=== PATIENT | male | born 1965 ===

== ENCOUNTER 2017-10-02 11:33 | Inpatient (IN) | payer MEDICAID, OTHER ==
[2017-10-02] MEDS ORDERED: DiphenhydrAMINE 50 mg/ml Inj IVP STA (12:06)
[2017-10-02] MEDS ORDERED: Vancomycin 1gm in NS 250ml 1 GM/250 ML BAG IVPB STA (12:06)
[2017-10-02] MEDS ORDERED: TDAP Vaccine 0.5 mL Syr IM ONE (12:15)
--- NOTE | 2017-10-02 12:15 | ED PDOC ---
Arrival/HPI - General Chief Complaint: Abnormal Skin Integrity Time Seen by Provider: 10/02/17 11:54 Historian: Patient - History of Present Illness Narrative History of Present Illness (Text): 10/02/17 12:09 52 y/o male, no significant pmh, nkda, last tetanus over 10 years ago, c/o lt. anterior graves pain and swelling x 3 weeks. Pt. stated that he accidentally hit on the wooden chair corner about 3 weeks ago, sustained abrasion which he has been self treating with the neosporin at home, still not healing, no fever or chills, no night sweat, no rash, no numbness or tingling, no palpitation, no other medical or psychological complaints. Past Medical History - Provider Review Nursing Documentation Reviewed: Yes - Infectious Disease Hx of Infectious Diseases: None - Pulmonary Hx Sleep Apnea: Yes - Psychiatric Hx Substance Use: No Family/Social History - Physician Review Nursing Documentation Reviewed: Yes Family/Social History: Unknown Family HX Smoking Status: Never Smoked Hx Alcohol Use: Yes Frequency of alcohol use: Socially Hx Substance Use: No Allergies/Home Meds Allergies/Adverse Reactions: Allergies No Known Allergies Allergy (Verified 10/02/17 11:50) Home Medications: Home Meds Medication Instructions Recorded Confirmed No Known Home Med 10/02/17 10/02/17 Review of Systems - Review of Systems Constitutional: absent: Fatigue, Fevers Eyes: absent: Vision Changes ENT: absent: Hearing Changes Respiratory: absent: SOB, Cough Cardiovascular: absent: Chest Pain Gastrointestinal: absent: Abdominal Pain, Nausea, Vomiting Skin: Rash, Skin Lesions, Cellulitis. absent: Pruritis, Laceration, Abscess, Ulcer Neurological: absent: Headache, Dizziness Psychiatric: absent: Anxiety, Depression, Suicidal Ideation Physical Exam Vital Signs Reviewed: Yes Vital Signs Temp Pulse Resp BP Pulse Ox 10/02/17 11:51 97.9 F 82 18 142/80 96 Temperature: Afebrile Blood Pressure: Normal Pulse: Regular Respiratory Rate: Normal Appearance: Positive for: Well-Appearing, Non-Toxic, Comfortable Pain Distress: Mild Mental Status: Positive for: Alert and Oriented X 3 - Systems Exam Head: Present: Atraumatic, Normocephalic Pupils: Present: PERRL Extroacular Muscles: Present: EOMI Conjunctiva: Present: Normal Mouth: Present: Moist Mucous Membranes Neck: Present: Normal Range of Motion Respiratory/Chest: Present: Clear to Auscultation, Good Air Exchange. No: Respiratory Distress, Accessory Muscle Use Cardiovascular: Present: Regular Rate and Rhythm, Normal S1, S2. No: Murmurs Abdomen: No: Tenderness, Distention, Peritoneal Signs Back: Present: Normal Inspection Upper Extremity: Present: Normal Inspection. No: Cyanosis, Edema Lower Extremity: Present: Normal Inspection, Other (Lt. graves: anteriorly noted to have 4cm superficial healing abrasion with surround erythematous approx. [id number] superficial cellulitis, no streaking or ulcers, FROM without limitation, sensation intact, motor 5/5, +DPPT pulses, capillary refill< 2 seconds, neurovasuclar intact. ). No: Edema Neurological: Present: GCS=15, CN II-XII Intact, Speech Normal Skin: Present: Warm, Dry, Normal Color. No: Rashes Psychiatric: Present: Alert, Oriented x 3, Normal Insight, Normal Concentration Medical Decision Making ED Course and Treatment: 10/02/17 12:18 Differential: DVT vs. Cellulitis vs. Fracture/foreign bodies -The wound doesn't feel or palpate any foreign bodies -Labs -LLE venuous dopper -Lt. tibia/fibula -IV vancomyin/toradol/benadryl -observe and reassess 10/02/17 14:25 -Lt.tibia/fibula xray: Unremarkable radiographs of the left tibia and fibula. -LLE Venuous doppler: as per preliminary report, no acute DVT -Labs are non-significant except wbc 1.5/platete 47, magnesium 2.3 with no previous comparisons -Pt. has extensive cellulitis, needs IV antibiotic and observation -Paging hospitalist for admission. 10/02/17 14:46 -I spoke to the hospitalist Dr. Fajardo, discussed about the case/labs/radiology result, agreed to admit to his service. -Dr. Nicole is busy, will put in the admission order for him for now. - Lab Interpretations Lab Results: 10/02/17 12:30 10/02/17 12:30 Lab Results 10/02/17 12:30: WBC 1.5 L*, RBC 4.30, Hgb 13.4 L, Hct 38.2 L, MCV 88.8, MCH 31.2 , MCHC 35.1, RDW 15.0 H, Plt Count 47 L*, MPV 10.0, Gran % 62.3, Lymph % (Auto) 19.9 L, Hill % (Auto) 11.6 H, Eos % (Auto) 4.8, Baso % (Auto) 1.4, Gran # 0.91 L , Lymph # (Auto) 0.3 L, Hill # (Auto) 0.2, Eos # (Auto) 0.1, Baso # (Auto) 0.02 10/02/17 12:30: Sodium 142, Potassium 4.3, Chloride 106, Carbon Dioxide 28, Anion Gap 12, BUN 9, Creatinine 0.7 L, Est GFR ( Amer) > 60, Est GFR (Non -Af Amer) > 60, Random Glucose 97, Calcium 8.4, Total Bilirubin 2.3 H, AST 135 H , ALT 56, Alkaline Phosphatase 227 H, Total Protein 7.6, Albumin 3.5, Globulin 4.1, Albumin/Globulin Ratio 0.9 L I have reviewed the lab results: Yes - RAD Interpretation Radiology Orders: 10/02/17 12:06 TIBIA FIBULA LEFT [RAD] Stat DUPLEX LOWER EXTRM VEIN LEFT [US] Stat Lt. tibia/fibula xray: Date of service: 10/02/2017 PROCEDURE: Radiographs of the left tibia and fibula. HISTORY: lt. tibial swelling COMPARISON: None available. TECHNIQUE: Frontal and lateral views obtained. FINDINGS: BONES: No fracture or destructive lesion. JOINT SPACES: Unremarkable. OTHER FINDINGS: None. IMPRESSION: Unremarkable radiographs of the left tibia and fibula. LLE Venuous doppler: as per preliminary report, no acute DVT Rn Plastics: Radiologist - Medication Orders Current Medication Orders: Discontinued Medications Diphenhydramine HCl (Benadryl) 25 mg IVP STAT STA Stop: 10/02/17 12:07 Last Admin: 10/02/17 12:34 Dose: 25 mg IVP Administration Document 10/02/17 12:34 EQ (Rec: 10/02/17 12:34 EQ [facility] Charges for Administration # of IVP Administrations 1 Vancomycin HCl (Vancomycin 1gm) 1 gm in 250 mls @ 167 mls/hr IVPB STAT STA PRN Reason: Protocol Stop: 10/02/17 13:35 Last Admin: 10/02/17 12:33 Dose: 167 mls/hr eMAR Start Stop Document 10/02/17 12:33 EQ (Rec: 10/02/17 12:33 EQ [facility]) Intravenous Solution Start Date 10/02/17 Start Time 12:33 Ketorolac Tromethamine (Toradol) 30 mg IVP STAT STA Stop: 10/02/17 12:07 Last Admin: 10/02/17 12:34 Dose: 30 mg MAR Pain Assessment Document 10/02/17 12:34 EQ (Rec: 10/02/17 12:34 EQ [facility] Pain Reassessment Is this a pain reassessment? No Sleep Is patient sleeping during reassessment? No Presence of Pain Presence of Pain Yes IVP Administration Document 10/02/17 12:34 EQ (Rec: 10/02/17 12:34 EQ [facility]) Charges for Administration # of IVP Administrations 1 Tetanus/Reduced Diphtheria/Acell Pertussis (Boostrix Vaccine Inj) 0.5 ml IM .ONCE ONE Stop: 10/02/17 12:16 Last Admin: 10/02/17 12:33 Dose: 0.5 ml - PA / SLOT TECHNICIAN / Resident Statement MD/DO has reviewed & agrees with the documentation as recorded. Disposition/Present on Arrival - Present on Arrival Any Indicators Present on Arrival: No History of DVT/PE: No History of Uncontrolled Diabetes: No Urinary Catheter: No History of Decub. Ulcer: No History Surgical Site Infection Following: None - Disposition Have Diagnosis and Disposition been Completed?: Yes Diagnosis: Infected abrasion, Cellulitis, Thrombocytopenia, Leukopenia Disposition: HOSPITALIZED Disposition Time: 14:27 Patient Plan: Admission, Observation Patient Problems: Current Active Problems Problem Status Onset Infected abrasion Acute Cellulitis Acute Condition: STABLE Discharge Instructions (ExitCare): Cellulitis (ED) Forms: Heidi Shaulis (Turkish)
[2017-10-02 12:39] LABS: BASO # 0.02 K/mm3 (0.0-2.0); BASO % 1.4 % (0.0-3.0); EOS # 0.1 (0.0-0.7); EOS % 4.8 % (1.5-5.0); GRAN # 0.91 (1.4-6.5); GRAN % 62.3 % (50.0-68.0); HEMOGLOBIN 13.4 g/dL (14.0-18.0); LYMPH # 0.3 (1.2-3.4); LYMPH % 19.9 % (22.0-35.0); MEAN CELL VOLUME 88.8 fl (80.0-105.0); MEAN CORPUSCULAR HEMOGLOBIN 31.2 pg (25.0-35.0); MEAN CORPUSCULAR HGB CONC 35.1 g/dl (31.0-37.0); MONO # 0.2 (0.1-0.6); MONO % 11.6 % (1.0-6.0)
[2017-10-02 12:50] LABS: WHITE BLOOD COUNT 1.5 10^3/ul (4.5-11.0)
[2017-10-02 12:51] LABS: PLATELET COUNT 47 10^3/uL (120.0-450.0)
[2017-10-02 12:54] LABS: ALB/GLOB RATIO 0.9 (1.1-1.8); ALBUMIN 3.5 g/dL (3.0-4.8); ALT/SGPT 56 U/L (7-56); AST/SGOT 135 U/L (17-59); BLOOD UREA NITROGEN 9 mg/dL (7-21); CALCIUM 8.4 mg/dL (8.4-10.5); GFR AFRICAN-AMERICAN > 60; GFR NON-AFRICAN AMERICAN > 60
--- NOTE | 2017-10-02 13:47 | RAD ---
Date of service: 10/02/2017 PROCEDURE: Radiographs of the left tibia and fibula. HISTORY: lt. tibial swelling COMPARISON: None available. TECHNIQUE: Frontal and lateral views obtained. FINDINGS: BONES: No fracture or destructive lesion. JOINT SPACES: Unremarkable. OTHER FINDINGS: None. IMPRESSION: Unremarkable radiographs of the left tibia and fibula.
[2017-10-02] MEDS ORDERED: Enoxaparin 40 mg Syringe SC SCH (15:00)
--- NOTE | 2017-10-02 15:54 | CP.PCM.HP ---
<Eran Aj - Last Filed: 10/02/17 16:34> History of Present Illness - History of Present Illness History of Present Illness: Eran Aj DO PGY-1, Desulfurizer Operator Medicine History and Physical 52 y o male PMhx sleep apnea, alcohol abuse presents to the ED c/o L anterior graves pain and swelling x 3 weeks. Pt states he was on top of a bar stool at home adjusting a vent on an air conditioning unit when he lost his balance, the stool fell underneath him, and hit his leg in the L anterior graves area. Pt states for the past several weeks, the area did not heal well. Pt c/o "scab" in area where he bumped his leg, denies bleeding, states the scab was there first, and then his leg became erythematous around it, from distal to his L knee to proximal to L lower anterior calf. Pt has only been applying neosporin to affected area. Pt states he does not follow with a PCP currently. Pt's girlfriend states at bedside that he came today because it was not improving, and that pt's girlfriend and pt's mother were concerned about the swelling. Denies fever or chills. Denies numbness/tingling/decreased sensation to affected area. States he has not had pain with ambulation since this started. Denies hx of this occurring before. Denies prior hx of cellulitis. Pt states he had bone marrow biopsy done 5 y ago as part of physical exam [place] [facility] [place] and he had history of low WBCs. Pt admits to drinking a 6 pack of beer almost every day during the week, admits to occasionally mixing with liquor. Reports last drink of alcohol was at 2 am this morning. Denies headache, dizziness, palpitations, diaphoresis, chest pain, shortness of breath, n/v/d/c, abd pain, urinary complaints, tremors, or other symptoms. PMhx: Sleep apnea, EtOH abuse PSurgHx: denies Allergies: NKDA Meds: none Fam hx: no pertinent family hx Soc hx: sexually active with girlfriend, does not use condoms, denies hx of STDs , last HIV test neg as per patient 4 mos ago Present on Admission - Present on Admission Any Indicators Present on Admission: No Review of Systems - Constitutional Constitutional: absent: As Per HPI, Anorexia, Chills, Daytime Sleepiness, Excessive Sweating, Fatigue, Fever, Frequent Falls, Headache, Increased Appetite , Lethargy, Malaise, Night Sweats, Snoring, Sleep Apnea, Weight Gain, Weight Loss, Weakness, Other - Cardiovascular Cardiovascular: absent: As Per HPI, Acrocyanosis, Chest Pain, Chest Pain at Rest , Chest Pain with Activity, Claudication, Diaphoresis, Dyspnea, Dyspnea on Exertion, Edema, Irregular Heart Rhythm, Pain Radiating to Arm/Neck/Jaw, Leg Edema, Leg Ulcers, Lightheadedness, Orthopnea, Palpitations, Paroxysmal Nocturnal Dyspnea, Pedal Edema, Radiating Pain, Rapid Heart Rate, Slow Heart Rate, Syncope, Other - Respiratory Respiratory: absent: As Per HPI, Cough, Dyspnea, Hemoptysis, Dyspnea on Exertion , Wheezing, Snoring, Stridor, Pain on Inspiration, Chest Congestion, Excessive Mucous Production, Change in Mucous Color, Pain with Coughing, Other - Gastrointestinal Gastrointestinal: absent: As Per HPI, Abdominal Pain, Belching, Bloating, Change in Bowel Habits, Change in Stool Character, Coffee Ground Emesis, Constipation, Cramping, Diarrhea, Dyspepsia, Dysphagia, Early Satiety, Excessive Flatus, Fecal Incontinence, Heartburn, Hematemesis, Hematochezia, Loose Stools, Melena, Nausea, Odynophagia, Temesmus, Vomiting, Other - Integumentary Integumentary: Erythema, New Lesions - Neurological Neurological: absent: As Per HPI, Abnormal Gait, Abnormal Hearing, Abnormal Movements, Abnormal Speech, Behavioral Changes, Burning Sensations, Confusion, Convulsions, Disequilibrium, Dizziness, Numbness, Focal Weakness, Frequent Falls , Headaches, Lack of Coordination, Loss of Vision, Memory Loss, Paresthesias, Radicular Pain, Restless Legs, Sensory Deficit, Syncope, Tingling, Tremor, Vertigo, Weakness, Other Visual Disturbances, Other Past Patient History - Infectious Disease Hx of Infectious Diseases: None - Past Social History Smoking Status: Never Smoked - PULMONARY Hx Sleep Apnea: Yes - PSYCHIATRIC Hx Substance Use: No - SURGICAL HISTORY Hx Surgeries: No Meds Allergies/Adverse Reactions: Allergies Allergy/AdvReac Type Severity Reaction Status Date / Time No Known Allergies Allergy Verified 10/02/17 16:16 Physical Exam - Constitutional Appears: Non-toxic, No Acute Distress - Head Exam Head Exam: ATRAUMATIC, NORMAL INSPECTION, NORMOCEPHALIC - Eye Exam Eye Exam: EOMI, Normal appearance, PERRL Additional comments: Negative for scleral icterus b/l - ENT Exam ENT Exam: Mucous Membranes Moist, Normal Oropharynx - Neck Exam Neck exam: Positive for: Full Rom, Normal Inspection - Respiratory Exam Respiratory Exam: Clear to Auscultation Bilateral, NORMAL BREATHING PATTERN - Cardiovascular Exam Cardiovascular Exam: REGULAR RHYTHM, +S1, +S2 - GI/Abdominal Exam GI & Abdominal Exam: Normal Bowel Sounds, Soft - Extremities Exam Extremities exam: Positive for: full ROM, normal capillary refill, pedal pulses present Additional comments: Lesion 2-3 cm in size surrounded by 10-14 cm area of erythema, no induration or fluctuance, firm, not warm to palpation, no abnormal discharge noted on exam - Back Exam Back exam: FULL ROM, NORMAL INSPECTION - Neurological Exam Neurological exam: Alert, CN II-XII Intact, Oriented x3 - Psychiatric Exam Psychiatric exam: Normal Affect, Normal Mood - Skin Skin Exam: Dry, Intact, Warm Results - Vital Signs Recent Vital Signs: Last Vital Signs Temp 97.9 F 10/02/17 11:51 Pulse 74 10/02/17 15:38 Resp 18 10/02/17 15:38 BP 127/54 L 10/02/17 15:38 Pulse Ox 100 10/02/17 15:38 - Labs Result Diagrams: 10/02/17 12:30 10/02/17 12:30 Assessment & Plan - Assessment and Plan (Free Text) Assessment: 52 y o male PMhx sleep apnea, EtOH abuse, presenting with 3 weeks of L anterior graves pain and swelling x 3 weeks. Pt admitted for cellulitis and treatment with IV antibiotics. Pt to also be monitored for alcohol withdrawal symptoms. Plan: L lower leg cellulitis S/p vancomycin in ED Start clindamycin 600 mg IVPB q 8 h Pt received tetanus booster vaccine in ED Pt leukopenic, thrombocytopenic on admission, continue to trend ID consulted, recs appreciated Pt afebrile, vitals stable, continue to monitor Blood cx ordered x2 Podiatry consulted not needed at this time due to XR not showing evidence of osteomyelitis in foot Leukopenic, thrombocytopenic Continue to trend Lovenox and Protonix held due to low cell counts, will reassess in am Likely 2/2 to EtOH abuse vs. immunocompromised state HIV, alcohol level pending Alcohol withdrawal Last drink consumed by pt at 2 am this morning Alcohol level pending CIWA protocol Ativan 2 mg q 6 h PRN Seizure/fall/aspiration precautions Regular diet Pt not demonstrating signs or symptoms of withdrawal at this time, continue to monitor Elevated AST Likely 2/2 to EtOH abuse Hepatitis panel pending Pt not c/o RUQ pain Continue to trend Hyperbilirubinemia Continue to trend Pt not c/o RUQ pain GI/DVT ppx: Protonix and Lovenox held due to low cell counts, will reassess in am. Pt encouraged to ambulate for DVT ppx. Pt seen, examined with, and plan discussed with Dr. Fajardo, attending. Eran Aj DO PGY-1, Desulfurizer Operator Pager #[phone] <Cherelle Fajardo - Last Filed: 10/02/17 17:26> Results - Vital Signs Recent Vital Signs: Last Vital Signs Temp 97.9 F 10/02/17 11:51 Pulse 74 10/02/17 15:38 Resp 18 10/02/17 15:38 BP 127/54 L 10/02/17 15:38 Pulse Ox 100 10/02/17 15:38 - Labs Result Diagrams: 10/02/17 12:30 10/02/17 12:30 Attending/Attestation - Attestation I have personally seen and examined this patient.: Yes I have fully participated in the care of the patient.: Yes I have reviewed all pertinent clinical information: Yes Notes (Text): 10/02/17 17:22 52 year old male with past medical history of alcohol abuse who presents with left anterior graves cellulitis. Xray was negative for evidence of osteomyelitis and LE doppler was also negative. He is started on iv antibiotics. ID evaluation is requested. He has leukopenia and thrombocytopenia, possibly secondary to ETOH bone marrow suppression vs infection. HIV and hepatitis panel is ordered. Monitor LFTs. Alcohol level and urine drug screen is ordered. Monitor for alcohol withdrawal symptoms. He was counselled on alcohol abstinence. Cherelle Fajardo MD Hospitalist.
[2017-10-02 16:08] LABS: BILIRUBIN,DIRECT 1.3 mg/dL (0.0-0.4)
--- NOTE | 2017-10-02 16:22 | US ---
PROCEDURE: Left lower extremity venous US HISTORY: Leg pain and swelling. Evaluate for DVT. PHYSICIAN(S): Jac Templeton MD. TECHNIQUE: Duplex sonography and color-flow Doppler with graded compression were used to evaluate the deep venous system of the left lower extremity. FINDINGS: The visualized deep venous system of the left lower extremity is sonographically normal and compressible. Normal wave forms and augmentation are seen. There is no sonographic evidence for deep venous thrombosis in the visualized segments of the left lower extremity. IMPRESSION: 1. No sonographic evidence for deep venous thrombosis in the visualized segments of the left lower extremity.
--- NOTE | 2017-10-02 17:29 | CP.PCM.CON ---
History of Present Illness - History of Present Illness History of Present Illness: Infectious Disease Consultation: October 02, 2017 52 yo male with PMhx sleep apnea, alcohol abuse presents to the ED c/o L anterior graves pain and swelling x 3 weeks. Pt states he was on top of a bar stool at home adjusting a vent on an air conditioning unit when he lost his balance, the stool fell underneath him, and hit his leg in the L anterior graves area. Pt states for the past several weeks, the area did not heal well. Pt c/o "scab" in area where he bumped his leg, denies bleeding, states the scab was there first, and then his leg became erythematous around it, from distal to his L knee to proximal to L lower anterior calf. Pt has only been applying neosporin to affected area. Patient's girlfriend states that the laceration/ scab has not changed in size from the time of injury. Pt states he does not follow with a PCP currently but was recently at Dr. Guo's office for sleep apnea testing and evaluation in August 2017. Pt's girlfriend states at bedside that he came today because it was not improving over the past 3 weeks, and that pt's girlfriend and pt's mother were concerned about the swelling. Denies fever or chills. Denies numbness/tingling/decreased sensation to affected area. States he has not had pain with ambulation since this started. Denies hx of this occurring before. Denies prior hx of cellulitis. Pt states he had bone marrow biopsy done 5 y ago as part of physical exam at [facility] [place] and he had history of low WBCs. Pt admits to drinking a 6 pack of beer almost every day during the week, admits to occasionally mixing with liquor. Reports last drink of alcohol was at 2 am this morning. Denies headache, dizziness, palpitations, diaphoresis, chest pain, shortness of breath, n/v/d/c, abd pain, urinary complaints, tremors, or other symptoms. PMHx: Sleep apnea, EtOH abuse, Circulation issues PSHx: None given. Allergies: NKDA Meds: none Fam hx: HTN - mother Soc hx: sexually active with girlfriend, does not use condoms, denies hx of STDs, last HIV test neg as per patient 4 mos ago No tobacco or illicit drug use ROS: No fevers, chills, nausea, vomiting, diarrhea, headaches, dizziness, chest pain , abdominal pain, melena, hematuria, hematemesis, hematochezia, depression, anxiety Past Patient History - Infectious Disease Hx of Infectious Diseases: None - Past Social History Smoking Status: Never Smoked - PULMONARY Hx Sleep Apnea: Yes - PSYCHIATRIC Hx Substance Use: No - SURGICAL HISTORY Hx Surgeries: No Meds Allergies/Adverse Reactions: Allergies Allergy/AdvReac Type Severity Reaction Status Date / Time No Known Allergies Allergy Verified 10/02/17 16:16 - Medications Medications: Current Medications Clindamycin Phosphate 600 mg/ (Sodium Chloride) 54 mls @ 102 mls/hr IVPB Q8 YUNG PRN Reason: Protocol Last Admin: 10/02/17 16:41 Dose: 102 mls/hr Lorazepam (Ativan) 2 mg IVP Q6H PRN; Protocol PRN Reason: Agitation Physical Exam - Constitutional Appears: Non-toxic, No Acute Distress - Head Exam Head Exam: ATRAUMATIC, NORMOCEPHALIC Additional comments: detentition below average. - Eye Exam Eye Exam: EOMI, PERRL Pupil Exam: NORMAL ACCOMODATION, PERRL - ENT Exam ENT Exam: Mucous Membranes Moist, Normal External Ear Exam, TM's Normal Bilaterally - Respiratory Exam Respiratory Exam: Clear to Auscultation Bilateral, NORMAL BREATHING PATTERN. absent: Rales, Rhonchi, Wheezes - Cardiovascular Exam Cardiovascular Exam: REGULAR RHYTHM, RRR, +S1, +S2 - GI/Abdominal Exam GI & Abdominal Exam: Normal Bowel Sounds, Soft. absent: Distended, Tenderness - Extremities Exam Extremities exam: Positive for: full ROM Additional comments: mild chronic venous stasis changes. Scabbed laceration about 4 cm in length on anterior left lower leg. No current drainage. At time of my exam, no additional warmth or tenderness. - Neurological Exam Neurological exam: Alert, CN II-XII Intact, Oriented x3 - Psychiatric Exam Psychiatric exam: Normal Affect, Normal Mood - Skin Skin Exam: Normal Color Additional comments: except for anterior lower left leg with 4 cm laceration that is scabbed over. Results - Vital Signs Recent Vital Signs: Last Vital Signs Temp 97.9 F 10/02/17 11:51 Pulse 74 10/02/17 15:38 Resp 18 10/02/17 15:38 BP 127/54 L 10/02/17 15:38 Pulse Ox 100 10/02/17 15:38 - Labs Result Diagrams: 10/02/17 12:30 10/02/17 12:30 Assessment & Plan - Assessment and Plan (Free Text) Assessment: 52 yo male with injury to left leg 3 weeks ago when he fell off a bar stool while trying to fix something in the house. As per , the left leg has had a non-healing laceration on the anterior lower left leg. Patient was only using Neosporin ointment for treatment. Currently he has no major complaints. Local wound care. On Clindamycin for antibiotic care at this time. Can continue with Clindamycin. IF leg continues to improve, can consider use of Clindamycin 450 mg PO TID to continue treatment at this time. Supportive care. Thank you for allowing me to participate in the care of the patient, we will follow with you.
[2017-10-02 17:58] VITALS: BMI 38.0
[2017-10-02] MEDS ORDERED: Pneumococcal 23-Valent Vaccine IM ONE (17:58)
[2017-10-03] MEDS ORDERED: Pantoprazole 40 mg EC Tab PO SCH (06:00)
[2017-10-03 08:33] LABS: BASO # 0.01 K/mm3 (0.0-2.0); BASO % 0.7 % (0.0-3.0); EOS # 0.1 (0.0-0.7); EOS % 4.9 % (1.5-5.0); GRAN # 0.99 (1.4-6.5); GRAN % 68.7 % (50.0-68.0); HEMOGLOBIN 13.5 g/dL (14.0-18.0); LYMPH # 0.2 (1.2-3.4); LYMPH % 15.3 % (22.0-35.0); MEAN CELL VOLUME 88.1 fl (80.0-105.0); MEAN CORPUSCULAR HGB CONC 35.2 g/dl (31.0-37.0); MEAN PLATELET VOLUME 10.6 fl (7.0-11.0); MONO # 0.2 (0.1-0.6); MONO % 10.4 % (1.0-6.0); RBC 4.36 10^6/uL (3.5-6.1); RED CELL DISTRIBUTION WIDTH 14.6 % (11.5-14.5)
[2017-10-03 08:39] LABS: WHITE BLOOD COUNT 1.4 10^3/ul (4.5-11.0)
[2017-10-03 08:40] LABS: ALB/GLOB RATIO 0.8 (1.1-1.8); ALBUMIN 3.4 g/dL (3.0-4.8); ALT/SGPT 50 U/L (7-56); AST/SGOT 118 U/L (17-59); BLOOD UREA NITROGEN 9 mg/dL (7-21); CALCIUM 8.6 mg/dL (8.4-10.5); GFR AFRICAN-AMERICAN > 60; GFR NON-AFRICAN AMERICAN > 60; PLATELET COUNT 44 10^3/uL (120.0-450.0)
[2017-10-03 11:10] LABS: PLATELET ESTIMATE LOW (NORMAL)
[2017-10-03 12:14] LABS: HEPATITIS B SURFACE AG Negative (NEGATIVE)
[2017-10-03 12:20] LABS: HEPATITIS A IGM NEGATIVE (NEGATIVE); HEPATITIS B CORE AB NEGATIVE (NEGATIVE)
[2017-10-03 12:32] LABS: HEPATITIS C ANTIBODY NEGATIVE (NEGATIVE)
--- NOTE | 2017-10-03 13:57 | CP.PCM.PN ---
Subjective - Date & Time of Evaluation Date of Evaluation: 10/03/17 Time of Evaluation: 13:30 - Subjective Subjective: Infectious Disease Follow Up: October 03, 2017 52 yo male with PMhx sleep apnea, alcohol abuse presents to the ED c/o L anterior graves pain and swelling x 3 weeks. Pt states he was on top of a bar stool at home adjusting a vent on an air conditioning unit when he lost his balance, the stool fell underneath him, and hit his leg in the L anterior graves area. Pt states for the past several weeks, the area did not heal well. Pt c/o "scab" in area where he bumped his leg, denies bleeding, states the scab was there first, and then his leg became erythematous around it, from distal to his L knee to proximal to L lower anterior calf. Pt has only been applying neosporin to affected area. Patient's girlfriend states that the laceration/ scab has not changed in size from the time of injury. Pt states he does not follow with a PCP currently but was recently at Dr. Guo's office for sleep apnea testing and evaluation in August 2017. Pt's girlfriend states at bedside that he came today because it was not improving over the past 3 weeks, and that pt's girlfriend and pt's mother were concerned about the swelling. Denies fever or chills. Denies numbness/tingling/decreased sensation to affected area. States he has not had pain with ambulation since this started. Denies hx of this occurring before. Denies prior hx of cellulitis. Pt states he had bone marrow biopsy done 5 y ago as part of physical exam [place] [facility] [place] had history of low WBCs. Pt admits to drinking a 6 pack of beer almost every day during the week, admits to occasionally mixing with liquor. Reports last drink of alcohol was at 2 am this morning. Denies headache, dizziness, palpitations, diaphoresis, chest pain, shortness of breath, n/v/d/c, abd pain, urinary complaints, tremors, or other symptoms. The patient with no erythema, additional warmth, or palpational tenderness. No drainage from the large laceration that is scabbed over. Patient still with pain at site. However no issues with walking or gait. Objective - Vital Signs/Intake and Output Vital Signs (last 24 hours): Temp Pulse Resp BP Pulse Ox 97.9 F 89 18 130/80 96 10/03/17 06:00 10/03/17 06:00 10/03/17 06:00 10/03/17 06:00 10/03/17 06:00 Intake and Output: 10/03/17 10/03/17 06:59 18:59 Intake Total 660 Balance 660 - Medications Medications: Current Medications Clindamycin Phosphate 600 mg/ (Sodium Chloride) 54 mls @ 102 mls/hr IVPB Q8 YUNG PRN Reason: Protocol Last Admin: 10/03/17 05:31 Dose: 102 mls/hr Lorazepam (Ativan) 2 mg IVP Q6H PRN; Protocol PRN Reason: Agitation - Labs Labs: 10/03/17 05:00 10/03/17 05:00 - Constitutional Appears: Non-toxic, No Acute Distress - Head Exam Head Exam: ATRAUMATIC, NORMOCEPHALIC Additional comments: dentition below average. - Eye Exam Eye Exam: EOMI, PERRL Pupil Exam: NORMAL ACCOMODATION, PERRL - ENT Exam ENT Exam: Mucous Membranes Moist, Normal External Ear Exam, TM's Normal Bilaterally - Neck Exam Neck Exam: Full ROM, Normal Inspection - Respiratory Exam Respiratory Exam: Clear to Ausculation Bilateral, NORMAL BREATHING PATTERN. absent: Rales, Rhonchi, Wheezes - Cardiovascular Exam Cardiovascular Exam: REGULAR RHYTHM, RRR, +S1, +S2 - GI/Abdominal Exam GI & Abdominal Exam: Soft, Normal Bowel Sounds. absent: Distended, Tenderness - Extremities Exam Extremities Exam: Full ROM Additional comments: mild chronic venous stasis changes. Scabbed laceration about 4 cm in length on anterior left lower leg. No current drainage. At time of my exam, no additional warmth or tenderness. - Neurological Exam Neurological Exam: Alert, Awake, CN II-XII Intact, Oriented x3 - Psychiatric Exam Psychiatric exam: Normal Affect, Normal Mood - Skin Skin Exam: Normal Color Additional comments: except for anterior lower left leg with 4 cm laceration that is scabbed over. Assessment and Plan - Assessment and Plan (Free Text) Assessment: 52 yo male with injury to left leg 3 weeks ago when he fell off a bar stool while trying to fix something in the house. As per , the left leg has had a non-healing laceration on the anterior lower left leg. Patient was only using Neosporin ointment for treatment. Currently he has no major complaints. Local wound care. On Clindamycin for antibiotic care at this time. Can continue with Clindamycin. IF leg continues to improve, can consider use of Clindamycin 450 mg PO TID to continue treatment on discharge for at least 14 days of treatment. Supportive care. Thank you for allowing me to participate in the care of the patient, we will follow with you.
--- NOTE | 2017-10-03 15:56 | CP.PCM.PN ---
<Eran Aj - Last Filed: 10/03/17 15:52> Subjective - Date & Time of Evaluation Date of Evaluation: 10/03/17 Time of Evaluation: 07:45 - Subjective Subjective: Eran Aj DO PGY-1, [employer] Medicine Progress Note Pt seen and examined at bedside. Reports he has been ambulating out of bed to bathroom without concerns. Tolerating PO diet, denies pain in affected leg with cellulitis. No acute events reported overnight. Objective - Vital Signs/Intake and Output Vital Signs (last 24 hours): Temp Pulse Resp BP Pulse Ox 97.9 F 68 18 110/75 97 10/03/17 14:00 10/03/17 14:00 10/03/17 14:00 10/03/17 14:00 10/03/17 14:00 Intake and Output: 10/03/17 10/03/17 06:59 18:59 Intake Total 660 300 Balance 660 300 - Medications Medications: Current Medications Clindamycin Phosphate 600 mg/ (Sodium Chloride) 54 mls @ 102 mls/hr IVPB Q8 YUNG PRN Reason: Protocol Last Admin: 10/03/17 13:40 Dose: 102 mls/hr Lorazepam (Ativan) 2 mg IVP Q6H PRN; Protocol PRN Reason: Agitation - Labs Labs: 10/03/17 05:00 10/03/17 05:00 - Constitutional Appears: Non-toxic, No Acute Distress - Eye Exam Eye Exam: EOMI, Normal appearance, PERRL - ENT Exam ENT Exam: Mucous Membranes Moist, Normal Oropharynx - Neck Exam Neck Exam: Full ROM, Normal Inspection - Respiratory Exam Respiratory Exam: Clear to Ausculation Bilateral, NORMAL BREATHING PATTERN - Cardiovascular Exam Cardiovascular Exam: REGULAR RHYTHM, +S1, +S2 - GI/Abdominal Exam GI & Abdominal Exam: Soft, Normal Bowel Sounds - Extremities Exam Extremities Exam: Full ROM, Normal Capillary Refill, Normal Inspection Additional comments: Improving LLE cellulitis, c/d/i, no discharge, no fluctuance, decreased size of erythema around site - Neurological Exam Neurological Exam: Alert, Awake, CN II-XII Intact, Normal Gait, Oriented x3 - Psychiatric Exam Psychiatric exam: Normal Affect, Normal Mood - Skin Skin Exam: Dry, Intact, Warm Assessment and Plan - Assessment and Plan (Free Text) Assessment: 52 y o male PMhx sleep apnea, EtOH abuse, presenting with 3 weeks of L anterior graves pain and swelling x 3 weeks. Pt admitted for cellulitis and treatment with IV antibiotics. Pt being monitored for alcohol withdrawal symptoms. Plan: L lower leg cellulitis S/p vancomycin in ED C/w clindamycin 600 mg IVPB q 8 h Per ID rec: pt can be discharged on clindamycin 450 mg PO tid for total course of 14 days of treatment Pt received tetanus booster vaccine, pneumococcal vaccine in ED Pt leukopenic, thrombocytopenic on admission, likely chronic Reviewed lab results and bone marrow bx from Dr. More's office (Heme/Onc), pt has hx chronic pancytopenia ID consulted, recs appreciated Pt afebrile, vitals stable, continue to monitor Blood cx ordered x2 Podiatry consulted not needed at this time due to XR not showing evidence of osteomyelitis in foot Leukopenic, thrombocytopenic Continue to trend Lovenox and Protonix held due to low cell counts, will reassess in am Likely 2/2 to EtOH abuse vs. immunocompromised state HIV test neg, alcohol level elevated Heme/Onc consulted, recs appreciated Alcohol withdrawal Last drink consumed by pt at 2 am on day of admission Alcohol level elevated CIWA protocol Ativan 2 mg q 6 h PRN Seizure/fall/aspiration precautions Regular diet Pt not demonstrating signs or symptoms of withdrawal at this time, continue to monitor Elevated AST Likely 2/2 to EtOH abuse Hepatitis panel neg Pt not c/o RUQ pain U/s spleen/liver pending Continue to trend Hyperbilirubinemia Continue to trend Pt not c/o RUQ pain Pending spleen/liver sono GI/DVT ppx: Protonix and Lovenox held due to low cell counts, will reassess. Pt encouraged to ambulate for DVT ppx. Pt seen, examined with, and plan discussed with Dr. Mejia, attending. Eran Aj DO PGY-1, [employer] Pager #[phone] <Janet Mejia - Last Filed: 10/04/17 13:16> Objective - Vital Signs/Intake and Output Vital Signs (last 24 hours): Temp Pulse Resp BP Pulse Ox 98.5 F 71 20 116/71 94 L 10/04/17 06:00 10/04/17 06:00 10/04/17 06:00 10/04/17 06:00 10/04/17 06:00 Intake and Output: 10/04/17 10/04/17 06:59 18:59 Intake Total 840 Balance 840 - Medications Medications: Current Medications Clindamycin Phosphate 600 mg/ (Sodium Chloride) 54 mls @ 102 mls/hr IVPB Q8 YUNG PRN Reason: Protocol Last Admin: 10/04/17 05:36 Dose: 102 mls/hr Lorazepam (Ativan) 2 mg IVP Q6H PRN; Protocol PRN Reason: Agitation - Labs Labs: 10/04/17 07:50 10/04/17 07:50 Attending/Attestation - Attestation I have personally seen and examined this patient.: Yes I have fully participated in the care of the patient.: Yes I have reviewed all pertinent clinical information, including history, physical exam and plan: Yes Notes (Text): 10/04/17 13:13 Medical record note made by the resident after discussion with my direction and input after the patient was personally seen and examined by me. I have reviewed the chart and agree that the record accurately reflects by personal performance of the history, physical exam, data review, and medical decision-making, in the course for the patient. I have also personally directed the plan of care. 52 year old male with past medical history of alcohol abuse who presents with left anterior graves cellulitis.Xray was negative for evidence of osteomyelitis and LE Doppler was also negative.Patient is responding well to IV antibiotics, redness and swelling is improving. Pancytopenia is due to bone suppression by alcohol and underlying chronic liver disease, we will monitor and get patient medical record from patient beater lead. There is no sign of alcohol withdrawal at this time. The issue of ongoing alcohol abuse was discussed in detail with patient. Management plan was discussed in detail with patient. Education was provided.
--- NOTE | 2017-10-03 16:22 | US ---
Date of service: 10/03/2017 HISTORY: hyperbilirubin pancytopenia COMPARISON: None. TECHNIQUE: Sonographic evaluation of the abdomen. FINDINGS: LIVER: Measures 15.9 cm. Heterogeneously increased echogenicity of the liver parenchyma. Nodular contour consistent with hepatic cirrhosis. No mass. No biliary ductal dilatation. GALLBLADDER: Unremarkable. No gallstones. COMMON BILE DUCT: Measures 5 mm. No stones. No dilatation. PANCREAS: Unremarkable as visualized. No mass. No ductal dilatation. RIGHT KIDNEY: Measures 13.0cm. Normal echogenicity. No calculus, mass, or hydronephrosis. LEFT KIDNEY: Measures 14.1cm. Normal echogenicity. No calculus, mass, or hydronephrosis. SPLEEN: Splenomegaly. The spleen measures 21.5 cm in greatest dimension. AORTA: No aneurysmal dilatation. IVC: Unremarkable. OTHER FINDINGS: Varices noted in left upper quadrant of abdomen. IMPRESSION: Hepatic cirrhosis. Varices. Splenomegaly. No evidence of biliary obstruction.
[2017-10-03 21:38] VITALS: RESP 20
[2017-10-04 07:40] VITALS: BP 116/71; PULSE 71; TEMP 98.5; O2SAT 94
[2017-10-04 07:55] LABS: BASO # 0.01 K/mm3 (0.0-2.0); BASO % 0.5 % (0.0-3.0); EOS # 0.2 (0.0-0.7); EOS % 7.4 % (1.5-5.0); GRAN # 1.32 (1.4-6.5); GRAN % 65.4 % (50.0-68.0); HEMOGLOBIN 14.2 g/dL (14.0-18.0); LYMPH # 0.4 (1.2-3.4); LYMPH % 17.3 % (22.0-35.0); MEAN CELL VOLUME 87.4 fl (80.0-105.0); MEAN CORPUSCULAR HEMOGLOBIN 30.9 pg (25.0-35.0); MEAN CORPUSCULAR HGB CONC 35.3 g/dl (31.0-37.0); MEAN PLATELET VOLUME 9.6 fl (7.0-11.0); MONO # 0.2 (0.1-0.6); MONO % 9.4 % (1.0-6.0); RED CELL DISTRIBUTION WIDTH 14.6 % (11.5-14.5)
[2017-10-04 08:06] LABS: ALB/GLOB RATIO 0.8 (1.1-1.8); ALBUMIN 3.3 g/dL (3.0-4.8); ALT/SGPT 48 U/L (7-56); AST/SGOT 108 U/L (17-59); BLOOD UREA NITROGEN 9 mg/dL (7-21); CALCIUM 8.6 mg/dL (8.4-10.5); GFR AFRICAN-AMERICAN > 60; GFR NON-AFRICAN AMERICAN > 60; PLATELET COUNT 45 10^3/uL (120.0-450.0)
[2017-10-04 09:10] LABS: PLATELET ESTIMATE LOW (NORMAL)
--- NOTE | 2017-10-04 15:45 | CP.PCM.PN ---
Subjective - Date & Time of Evaluation Date of Evaluation: 10/04/17 Time of Evaluation: 12:00 - Subjective Subjective: Infectious Disease Follow Up: October 04, 2017 52 yo male with PMhx sleep apnea, alcohol abuse presents to the ED c/o L anterior graves pain and swelling x 3 weeks. Pt states he was on top of a bar stool at home adjusting a vent on an air conditioning unit when he lost his balance, the stool fell underneath him, and hit his leg in the L anterior graves area. Pt states for the past several weeks, the area did not heal well. Pt c/o "scab" in area where he bumped his leg, denies bleeding, states the scab was there first, and then his leg became erythematous around it, from distal to his L knee to proximal to L lower anterior calf. Pt has only been applying neosporin to affected area. Patient's girlfriend states that the laceration/ scab has not changed in size from the time of injury. Pt states he does not follow with a PCP currently but was recently at Dr. Guo's office for sleep apnea testing and evaluation in August 2017. Pt's girlfriend states at bedside that he came today because it was not improving over the past 3 weeks, and that pt's girlfriend and pt's mother were concerned about the swelling. Denies fever or chills. Denies numbness/tingling/decreased sensation to affected area. States he has not had pain with ambulation since this started. Denies hx of this occurring before. Denies prior hx of cellulitis. Pt states he had bone marrow biopsy done 5 y ago as part of physical exam at [facility] [place] and he had history of low WBCs. Pt admits to drinking a 6 pack of beer almost every day during the week, admits to occasionally mixing with liquor. Reports last drink of alcohol was at 2 am this morning. Denies headache, dizziness, palpitations, diaphoresis, chest pain, shortness of breath, n/v/d/c, abd pain, urinary complaints, tremors, or other symptoms. The patient with no erythema, additional warmth, or palpational tenderness. No drainage from the large laceration that is scabbed over. Patient still with pain at site. However no issues with walking or gait. Objective - Vital Signs/Intake and Output Vital Signs (last 24 hours): Temp Pulse Resp BP Pulse Ox 98.5 F 71 20 116/71 94 L 10/04/17 06:00 10/04/17 06:00 10/04/17 06:00 10/04/17 06:00 10/04/17 06:00 Intake and Output: 10/04/17 10/04/17 06:59 18:59 Intake Total 840 Balance 840 - Labs Labs: 10/04/17 07:50 10/04/17 07:50 - Constitutional Appears: Non-toxic, No Acute Distress - Head Exam Head Exam: ATRAUMATIC, NORMOCEPHALIC Additional comments: dentition below average - Eye Exam Eye Exam: EOMI, PERRL Pupil Exam: NORMAL ACCOMODATION, PERRL - ENT Exam ENT Exam: Mucous Membranes Moist, Normal External Ear Exam, TM's Normal Bilaterally - Neck Exam Neck Exam: Full ROM, Normal Inspection - Respiratory Exam Respiratory Exam: Clear to Ausculation Bilateral, NORMAL BREATHING PATTERN. absent: Rales, Rhonchi, Wheezes - Cardiovascular Exam Cardiovascular Exam: REGULAR RHYTHM, RRR, +S1, +S2 - GI/Abdominal Exam GI & Abdominal Exam: Soft, Normal Bowel Sounds. absent: Distended, Tenderness - Extremities Exam Extremities Exam: Full ROM Additional comments: mild chronic venous stasis changes. Scabbed laceration about 4 cm in length on anterior left lower leg. No current drainage. At time of my exam, no additional warmth or tenderness. - Neurological Exam Neurological Exam: Alert, Awake, CN II-XII Intact, Oriented x3 - Psychiatric Exam Psychiatric exam: Normal Affect, Normal Mood - Skin Skin Exam: Normal Color Additional comments: except for anterior lower left leg with 4 cm laceration that is scabbed over. Assessment and Plan - Assessment and Plan (Free Text) Assessment: 52 yo male with injury to left leg 3 weeks ago when he fell off a bar stool while trying to fix something in the house. As per , the left leg has had a non-healing laceration on the anterior lower left leg. Patient was only using Neosporin ointment for treatment. Currently he has no major complaints. Local wound care. On Clindamycin for antibiotic care at this time. Can continue with Clindamycin. IF leg continues to improve, can consider use of Clindamycin 450 mg PO TID to continue treatment on discharge for at least 14 days of treatment. Supportive care. Thank you for allowing me to participate in the care of the patient, we will follow with you.
--- NOTE | 2017-10-04 18:12 | CP.PCM.DIS ---
<Eran Aj - Last Filed: 10/04/17 18:00> Provider - Provider Date of Admission: 10/02/17 16:57 Attending physician: Janet Mejia MD Consults: ISRAEL Giordano Time Spent in preparation of Discharge (in minutes): 45 Hospital Course - Lab Results Lab Results: Most Recent Lab Values WBC 2.0 10^3/ul (4.5-11.0) L* D 10/04/17 07:50 RBC 4.60 10^6/uL (3.5-6.1) 10/04/17 07:50 Hgb 14.2 g/dL (14.0-18.0) 10/04/17 07:50 Hct 40.2 % (42.0-52.0) L 10/04/17 07:50 MCV 87.4 fl (80.0-105.0) 10/04/17 07:50 MCH 30.9 pg (25.0-35.0) 10/04/17 07:50 MCHC 35.3 g/dl (31.0-37.0) 10/04/17 07:50 RDW 14.6 % (11.5-14.5) H 10/04/17 07:50 Plt Count 45 10^3/uL (120.0-450.0) L* 10/04/17 07:50 MPV 9.6 fl (7.0-11.0) 10/04/17 07:50 Gran % 65.4 % (50.0-68.0) 10/04/17 07:50 Lymph % (Auto) 17.3 % (22.0-35.0) L 10/04/17 07:50 Borden % (Auto) 9.4 % (1.0-6.0) H 10/04/17 07:50 Eos % (Auto) 7.4 % (1.5-5.0) H 10/04/17 07:50 Baso % (Auto) 0.5 % (0.0-3.0) 10/04/17 07:50 Gran # 1.32 (1.4-6.5) L 10/04/17 07:50 Lymph # (Auto) 0.4 (1.2-3.4) L 10/04/17 07:50 Borden # (Auto) 0.2 (0.1-0.6) 10/04/17 07:50 Eos # (Auto) 0.2 (0.0-0.7) 10/04/17 07:50 Baso # (Auto) 0.01 K/mm3 (0.0-2.0) 10/04/17 07:50 Platelet Evaluation Low (NORMAL) 10/04/17 07:50 Sodium 138 mmol/L (132-148) 10/04/17 07:50 Potassium 3.9 mmol/L (3.6-5.0) 10/04/17 07:50 Chloride 106 mmol/L (98-107) 10/04/17 07:50 Carbon Dioxide 23 mmol/L (21-33) 10/04/17 07:50 Anion Gap 13 (10-20) 10/04/17 07:50 BUN 9 mg/dL (7-21) 10/04/17 07:50 Creatinine 0.7 mg/dl (0.8-1.5) L 10/04/17 07:50 Est GFR ( Amer) > 60 10/04/17 07:50 Est GFR (Non-Af Amer) > 60 10/04/17 07:50 Random Glucose 97 mg/dL (70-110) 10/04/17 07:50 Calcium 8.6 mg/dL (8.4-10.5) 10/04/17 07:50 Phosphorus 3.1 mg/dL (2.5-4.5) 10/02/17 12:30 Magnesium 1.9 mg/dL (1.7-2.2) 10/02/17 12:30 Total Bilirubin 3.3 mg/dL (0.2-1.3) H 10/04/17 07:50 Direct Bilirubin 1.3 mg/dL (0.0-0.4) H 10/02/17 12:30 AST 108 U/L (17-59) H 10/04/17 07:50 ALT 48 U/L (7-56) 10/04/17 07:50 Alkaline Phosphatase 221 U/L (38-126) H 10/04/17 07:50 Total Protein 7.5 g/dL (5.8-8.3) 10/04/17 07:50 Albumin 3.3 g/dL (3.0-4.8) 10/04/17 07:50 Globulin 4.2 gm/dL 10/04/17 07:50 Albumin/Globulin Ratio 0.8 (1.1-1.8) L 10/04/17 07:50 Alcohol, Quantitative 64 mg/dL (0-10) H 10/02/17 12:30 Hepatitis A IgM Ab Negative (NEGATIVE) 10/02/17 12:30 Hep Bs Antigen Negative (NEGATIVE) 10/02/17 12:30 Hep B Core IgM Ab Negative (NEGATIVE) 10/02/17 12:30 Hepatitis C Antibody Negative (NEGATIVE) 10/02/17 12:30 HIV 1&2 Ag/Ab, 4th Gen Nonreactive (Nonreactive) 10/02/17 12:30 - Hospital Course Hospital Course: Eran Aj DO PGY-1, Transmitter Engineer In Charge Medicine Discharge Summary 52 y o male PMhx sleep apnea, EtOH abuse, presented to ED on 10/02/17 with c/o L anterior graves pain and swelling x 3 weeks. Pt denied fevers or chills. Denied numbness/tingling/decreased sensation to affected area. Pt had no concerns or pain with ambulation. Pt stated he had a bone marrow bx done several years ago as part of physical exam at [facility], and has had chronic hx of leukopenia. Pt admitted to drinking 6 pack of beer almost every day of the week. Pt was thus admitted for LE cellulitis and pancytopenia. Pt was given vancomycin in ED. On day 1 inpatient, pt was started on clindamycin 600 mg IVPB q 8 h. Pt also received tetanus booster and pneumococcal vaccines in ED. LE doppler u/s demonstrated no DVT. XR of L tibia/fibula demonstrated no signs of osteomyelitis. On day 2, the inflammation was decreasing and pt stated he was feeling much better. Blood cultures were ordered but came back negative. Pt's leukopenia and thrombocytopenia was monitored throughout his stay with bloodwork. Pt's WBC count was low, but began to trend up due to cessation of alcohol during hospital stay. Peripheral blood smear was done and demonstrated normocytic, normochromic anemia. Pt was placed on CIWA protocol due to hx of alcohol abuse, placed on seizure/fall/aspiration precautions, and ativan prn for symptoms. Pt also had elevated AST on admission. Abd U/s demonstrated hepatic cirrhosis, varices, and splenomegaly. Pt did not report any abdominal pain or tenderness. Spleen was palpable on physical exam. Pt was discharged to home in stable condition on 10/04/17 and instructed to complete clindamycin for additional 5 days of therapy. Pt was educated about alcohol cessation. Pt was instructed to follow-up with [facility] for follow-up appt on 10/12/17 at 3:00 pm, and also to f/u with heme/onc as outpatient for hx chronic pancytopenia. Discharge Exam - Head Exam Head Exam: ATRAUMATIC, NORMOCEPHALIC - Eye Exam Eye Exam: EOMI, Normal appearance, PERRL - ENT Exam ENT Exam: Mucous Membranes Moist, Normal Oropharynx - Neck Exam Neck exam: Full Rom, Normal Inspection - Respiratory Exam Respiratory Exam: Clear to PA & Lateral, NORMAL BREATHING PATTERN - Cardiovascular Exam Cardiovascular Exam: REGULAR RHYTHM, +S1, +S2 - GI/Abdominal Exam GI & Abdominal Exam: Normal Bowel Sounds, Soft - Extremities Exam Extremities exam: full ROM, normal capillary refill, pedal pulses present - Neurological Exam Neurological exam: Alert, CN II-XII Intact, Normal Gait, Oriented x3, Reflexes Normal - Psychiatric Exam Psychiatric exam: Normal Affect, Normal Mood - Skin Skin Exam: Dry, Intact, Normal Color, Warm Discharge Plan - Discharge Medications Prescriptions: Clindamycin [Cleocin] 450 mg PO TID #15 cap Folic Acid 1 mg PO DAILY #30 tab Mv-Min/Folic/Vit K/Lycop/Coq10 [Daily Multivitamin Capsule] 1 each PO DAILY #30 capsule Thiamine [Vitamin B1 Tab] 50 mg PO DAILY #14 tab - Follow Up Plan Condition: STABLE Disposition: HOME/ ROUTINE Instructions: Wound Care (DC), Bleeding Precautions, Cellulitis (DC), Cellulitis (GEN), Myelodysplastic Syndromes (DC), Myelodysplastic Syndromes (GEN ) <Janet Mejia - Last Filed: 10/05/17 15:11> Provider - Provider Date of Admission: 10/02/17 16:57 Attending physician: Janet Mejia MD Hospital Course - Lab Results Lab Results: Most Recent Lab Values WBC 2.0 10^3/ul (4.5-11.0) L* D 10/04/17 07:50 RBC 4.60 10^6/uL (3.5-6.1) 10/04/17 07:50 Hgb 14.2 g/dL (14.0-18.0) 10/04/17 07:50 Hct 40.2 % (42.0-52.0) L 10/04/17 07:50 MCV 87.4 fl (80.0-105.0) 10/04/17 07:50 MCH 30.9 pg (25.0-35.0) 10/04/17 07:50 MCHC 35.3 g/dl (31.0-37.0) 10/04/17 07:50 RDW 14.6 % (11.5-14.5) H 10/04/17 07:50 Plt Count 45 10^3/uL (120.0-450.0) L* 10/04/17 07:50 MPV 9.6 fl (7.0-11.0) 10/04/17 07:50 Gran % 65.4 % (50.0-68.0) 10/04/17 07:50 Lymph % (Auto) 17.3 % (22.0-35.0) L 10/04/17 07:50 Borden % (Auto) 9.4 % (1.0-6.0) H 10/04/17 07:50 Eos % (Auto) 7.4 % (1.5-5.0) H 10/04/17 07:50 Baso % (Auto) 0.5 % (0.0-3.0) 10/04/17 07:50 Gran # 1.32 (1.4-6.5) L 10/04/17 07:50 Lymph # (Auto) 0.4 (1.2-3.4) L 10/04/17 07:50 Borden # (Auto) 0.2 (0.1-0.6) 10/04/17 07:50 Eos # (Auto) 0.2 (0.0-0.7) 10/04/17 07:50 Baso # (Auto) 0.01 K/mm3 (0.0-2.0) 10/04/17 07:50 Differential Comment See pathology report 10/03/17 07:30 Platelet Evaluation Low (NORMAL) 10/04/17 07:50 Sodium 138 mmol/L (132-148) 10/04/17 07:50 Potassium 3.9 mmol/L (3.6-5.0) 10/04/17 07:50 Chloride 106 mmol/L (98-107) 10/04/17 07:50 Carbon Dioxide 23 mmol/L (21-33) 10/04/17 07:50 Anion Gap 13 (10-20) 10/04/17 07:50 BUN 9 mg/dL (7-21) 10/04/17 07:50 Creatinine 0.7 mg/dl (0.8-1.5) L 10/04/17 07:50 Est GFR ( Amer) > 60 10/04/17 07:50 Est GFR (Non-Af Amer) > 60 10/04/17 07:50 Random Glucose 97 mg/dL (70-110) 10/04/17 07:50 Calcium 8.6 mg/dL (8.4-10.5) 10/04/17 07:50 Phosphorus 3.1 mg/dL (2.5-4.5) 10/02/17 12:30 Magnesium 1.9 mg/dL (1.7-2.2) 10/02/17 12:30 Total Bilirubin 3.3 mg/dL (0.2-1.3) H 10/04/17 07:50 Direct Bilirubin 1.3 mg/dL (0.0-0.4) H 10/02/17 12:30 AST 108 U/L (17-59) H 10/04/17 07:50 ALT 48 U/L (7-56) 10/04/17 07:50 Alkaline Phosphatase 221 U/L (38-126) H 10/04/17 07:50 Total Protein 7.5 g/dL (5.8-8.3) 10/04/17 07:50 Albumin 3.3 g/dL (3.0-4.8) 10/04/17 07:50 Globulin 4.2 gm/dL 10/04/17 07:50 Albumin/Globulin Ratio 0.8 (1.1-1.8) L 10/04/17 07:50 Alcohol, Quantitative 64 mg/dL (0-10) H 10/02/17 12:30 Hepatitis A IgM Ab Negative (NEGATIVE) 10/02/17 12:30 Hep Bs Antigen Negative (NEGATIVE) 10/02/17 12:30 Hep B Core IgM Ab Negative (NEGATIVE) 10/02/17 12:30 Hepatitis C Antibody Negative (NEGATIVE) 10/02/17 12:30 HIV 1&2 Ag/Ab, 4th Gen Nonreactive (Nonreactive) 10/02/17 12:30 Attending/Attestation - Attestation I have personally seen and examined this patient.: Yes I have fully participated in the care of the patient.: Yes I have reviewed all pertinent clinical information, including history, physical exam and plan: Yes Notes (Text): 10/05/17 15:09 Medical record note made by the resident after discussion with my direction and input after the patient was personally seen and examined by me. I have reviewed the chart and agree that the record accurately reflects by personal performance of the history, physical exam, data review, and medical decision-making, in the course for the patient. I have also personally directed the plan of care. 52 year old male with past medical history of alcohol abuse who presents with left anterior graves cellulitis. Xray was negative for evidence of osteomyelitis and LE Doppler was also negative.Patient has responded well to IV antibiotics, redness and swelling is improved. Pancytopenia is due to bone suppression by alcohol and underlying chronic liver disease,Neutropenia is improving.The issue of ongoing alcohol abuse was discussed in detail with patient. There is no sign of alcohol withdrawal at this time. Management plan was discussed in detail with patient. Education was provided.
== END 2017-10-04 13:30 | disposition home or self-care (01) | DRG 603 ==
LOC: ED 11:33 → EDSEX 11:33 → ERH 14:37 → 5RSO 16:14 → OBSVTOIN 16:57
PROVIDERS: ADMIT Internal Medicine; ATTEND Internal Medicine
DX: L03.116 Cellulitis of left lower limb (principal); D61.818 Other pancytopenia; S81.812A Laceration without foreign body, left lower leg, initial encounter; F10.10 Alcohol abuse, uncomplicated; G47.30 Sleep apnea, unspecified; K74.60 Unspecified cirrhosis of liver; Y90.3 Blood alcohol level of 60-79 mg/100 ml; W07.XXXA Fall from chair, initial encounter; Y92.098 Other place in other non-institutional residence as the place of occurrence of the external cause; Y93.89 Activity, other specified; Z82.49 Family history of ischemic heart disease and other diseases of the circulatory system